=== PATIENT | female | born 1990 | race Caucasian/White ===

== ENCOUNTER 2016-11-23 11:36 | Emergency (ER) | payer OTHER ==
[2016-11-23 12:07] VITALS: BP 160/107; PULSE 117; TEMP 99.1; BMI 36.3
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
== END 2016-11-23 13:18 | disposition home or self-care (01) ==
LOC: JERFT 11:36
DX: O99.89 Other specified diseases and conditions complicating pregnancy, childbirth and the puerperium (principal); M54.89 Other dorsalgia; M54.2 Cervicalgia; V49.49XS Driver injured in collision with other motor vehicles in traffic accident, sequela; Z3A.00 Weeks of gestation of pregnancy not specified
CPT/HCPCS: 84703; 99281-25